=== PATIENT | female | born 1990 | race American Indian/Alaskan Native ===

== ENCOUNTER 2020-07-24 08:36 | Emergency (ER) | payer MEDICAID ==
[2020-07-24] MEDS ORDERED: ASPIRIN 325 MG TAB PO ONE (08:44)
[2020-07-24 09:09] LABS: Basophils % (Auto) 0.5 % (0.0-1.8); Eosinophils # (Auto) 0.1 K/mm3 (0.0-0.4); Eosinophils % (Auto) 0.8 % (0.0-4.3); Hematocrit 35.3 % (30.3-42.9); Hemoglobin 11.4 gm/dl (10.1-14.3); Lymphocytes # (Auto) 1.4 K/mm3 (1.2-5.4); Lymphocytes % (Auto) 21.3 % (13.4-35.0); Mean Corpuscular HGB Conc 32 % (30-34); Mean Corpuscular Volume 84 fl (79-97); Monocytes # (Auto) 0.3 K/mm3 (0.0-0.8); Monocytes % (Auto) 5.2 % (0.0-7.3); Platelet Count 255 K/mm3 (140-440); Red Blood Count 4.18 M/mm3 (3.65-5.03); Red Cell Distribution Width 15.1 % (13.2-15.2)
--- NOTE | 2020-07-24 09:10 | XRay Report ---
CHEST 1 VIEW INDICATION: Chest Pain. COMPARISON: None. FINDINGS: Support devices: None. Heart: Normal. Lungs/Pleura: No acute pulmonary or pleural findings. IMPRESSION: 1. No acute findings. Signer Name: Gregory Campbell MD Signed: 07/24/2020 9:06 AM Workstation Name: [id number]
[2020-07-24 09:30] LABS: BUN/Creatinine Ratio 13; Blood Urea Nitrogen 9 mg/dL (7-17); Calcium 9.1 mg/dL (8.4-10.2); Hemolysis Index 2
[2020-07-24] MEDS ORDERED: KETOROLAC 10 MG TAB ONE (14:00)
--- NOTE | 2020-07-24 14:18 | Emergency Department Report ---
ED Chest Pain HPI - General Chief Complaint: Chest Pain Stated Complaint: CHEST PAINS Time Seen by Provider: 07/24/20 14:13 Source: patient Mode of arrival: Ambulatory Limitations: No Limitations - History of Present Illness Initial Comments: 29-year-old -[place] female patient without past medical history presents with complaints of sudden onset of lower substernal chest pain x about 2 AM last night. She describes the pain as a squeezing type pain and denies radiation through to her back. Patient rates her current pain as a 7/10 in severity and states it also radiates into her upper stomach. She denies any abnormal heart history or family history of heart disease, shortness of breath, cough, hemoptysis, leg pain/swelling, history of DVT/PE/cancer, recent long travel/surgeries, or hormone use. Pain worsens with deep inhalation per patient. She also denies any recent heavy lifting or trauma to her chest wall or history of GERD. - Related Data Previous Rx's Medication Instructions Recorded Last Taken Type Diclofenac Sodium 75 mg PO BID PRN #14 tablet. 07/24/20 Unknown Rx methOCARBAMOL [Robaxin TAB] 1,500 mg PO Q8H PRN #22 tablet 07/24/20 Unknown Rx Allergies Allergy/AdvReac Type Severity Reaction Status Date / Time No Known Allergies Allergy Unverified 07/24/20 08:40 Heart Score - HEART Score History: Slightly suspicious EKG: Normal Age: < 45 Risk factors: No known risk factors Troponin: < normal limit HEART Score: 0 - Critical Actions Critical Actions: 0-3 pts:0.9-1.7%risk of adverse cardiac event.Candidate for discharge ED Review of Systems ROS: Stated complaint: CHEST PAINS Other details as noted in HPI Constitutional: denies: chills, diaphoresis, fever, malaise, weakness Respiratory: denies: cough, shortness of breath Cardiovascular: chest pain. denies: palpitations, edema, syncope Endocrine: denies: excessive sweating Gastrointestinal: as per HPI. denies: nausea Skin: denies: lesions, change in color Neurological: denies: headache, weakness Hematological/Lymphatic: denies: swollen glands ED Past Medical Hx - Past Medical History Previous Medical History?: No - Surgical History Past Surgical History?: No - Social History Smoking Status: Never Smoker - Medications Home Medications: Home Medications Medication Instructions Recorded Confirmed Last Taken Type Diclofenac Sodium 75 mg PO BID PRN #14 tablet. 07/24/20 Unknown Rx methOCARBAMOL [Robaxin TAB] 1,500 mg PO Q8H PRN #22 tablet 07/24/20 Unknown Rx ED Physical Exam - General Limitations: No Limitations General appearance: alert, in no apparent distress - Head Head exam: Present: atraumatic, normocephalic - Eye Eye exam: Present: normal appearance. Absent: scleral icterus - ENT ENT exam: Present: mucous membranes moist - Neck Neck exam: Present: normal inspection - Respiratory Respiratory exam: Present: normal lung sounds bilaterally, chest wall tenderness (Bilateral lower parasternal and sternal tenderness to palpation noted without skin changes). Absent: respiratory distress - Cardiovascular Cardiovascular Exam: Present: regular rate, normal rhythm. Absent: systolic murmur, diastolic murmur, rubs, gallop - GI/Abdominal GI/Abdominal exam: Present: soft. Absent: distended, tenderness, guarding, rebound - Extremities Exam Extremities exam: Present: full ROM. Absent: calf tenderness (No swelling or pain noted to legs bilaterally) - Back Exam Back exam: Present: full ROM. Absent: CVA tenderness (R), CVA tenderness (L), paraspinal tenderness, vertebral tenderness - Neurological Exam Neurological exam: Present: alert, oriented X3, normal gait - Psychiatric Psychiatric exam: Present: normal affect, normal mood - Skin Skin exam: Present: warm, dry, intact, normal color. Absent: rash, cyanosis ED Course Vital Signs 07/24/20 07/24/20 08:39 14:39 Temperature 98.5 F Pulse Rate 89 85 Respiratory 16 16 Rate Blood Pressure 137/89 Blood Pressure 121/78 [Right] O2 Sat by Pulse 100 99 Oximetry ED Medical Decision Making - Lab Data Result diagrams: 07/24/20 08:55 07/24/20 08:55 Lab Results 07/24/20 07/24/20 07/24/20 Range/Units 08:55 08:55 11:39 WBC 6.6 (4.5-11.0) K/mm3 RBC 4.18 (3.65-5.03) M/mm3 Hgb 11.4 (10.1-14.3) gm/dl Hct 35.3 (30.3-42.9) % MCV 84 (79-97) fl MCH 27 L (28-32) pg MCHC 32 (30-34) % RDW 15.1 (13.2-15.2) % Plt Count 255 (140-440) K/mm3 Lymph % (Auto) 21.3 (13.4-35.0) % Edmunds % (Auto) 5.2 (0.0-7.3) % Eos % (Auto) 0.8 (0.0-4.3) % Baso % (Auto) 0.5 (0.0-1.8) % Lymph # (Auto) 1.4 (1.2-5.4) K/mm3 Edmunds # (Auto) 0.3 (0.0-0.8) K/mm3 Eos # (Auto) 0.1 (0.0-0.4) K/mm3 Baso # (Auto) 0.0 (0.0-0.1) K/mm3 Seg Neutrophils % 72.2 H (40.0-70.0) % Seg Neutrophils # 4.8 (1.8-7.7) K/mm3 Sodium 138 (137-145) mmol/L Potassium 4.2 (3.6-5.0) mmol/L Chloride 103.3 (98-107) mmol/L Carbon Dioxide 25 (22-30) mmol/L Anion Gap 14 mmol/L BUN 9 (7-17) mg/dL Creatinine 0.7 (0.6-1.2) mg/dL Estimated GFR > 60 ml/min BUN/Creatinine Ratio 13 % Glucose 99 (65-100) mg/dL Calcium 9.1 (8.4-10.2) mg/dL Troponin T < 0.010 < 0.010 (0.00-0.029) ng/mL - EKG Data EKG shows normal: sinus rhythm Rate: normal - EKG Data Interpretation: normal EKG - Radiology Data Radiology results: report reviewed - Medical Decision Making 29-year-old -[place] female patient without past medical history presents with complaints of sudden onset of lower substernal chest pain x about 2 AM last night. She describes the pain as a squeezing type pain and denies radiation through to her back. Patient rates her current pain as a 7/10 in severity and states it also radiates into her upper stomach. She denies any abnormal heart history or family history of heart disease, shortness of breath, cough, hemoptysis, leg pain/swelling, history of DVT/PE/cancer, recent long travel/surgeries, or hormone use. Pain worsens with deep inhalation per patien t. She also denies any recent heavy lifting or trauma to her chest wall or history of GERD. CBC, CMP, and troponin are normal. Chest x-ray is without acute findings. Patient has tenderness to palpation of the costal sternal area of her chest where she states her pain is. Heart score = 0. PERC score = 0. Suspect costochondritis as cause. Patient given Toradol and states her symptoms have improved. Recommend icing and NSAIDs for now. Patient to follow-up with primary care within 2 days. Her vitals are normal, she is well-appearing, she is stable for discharge home. Strict return precautions were discussed in detail with patient who verbalizes understanding. Critical care attestation.: If time is entered above; I have spent that time in minutes in the direct care of this critically ill patient, excluding procedure time. ED Disposition Clinical Impression: Costochondritis, acute, Other chest pain Disposition: DC- TO HOME OR SELFCARE Is pt being admited?: No Condition: Stable Instructions: Chest Pain (ED) Prescriptions: Diclofenac Sodium 75 mg PO BID PRN #14 tablet. PRN Reason: pain methOCARBAMOL [Robaxin TAB] 1,500 mg PO Q8H PRN #22 tablet PRN Reason: muscle tightness/spasm Referrals: EDIS RENNER MD [Referring] - 2-3 Days
[2020-07-24 14:39] VITALS: BP 121/78
[2020-07-24] MEDS ORDERED: KETOROLAC 10 MG TAB PO ONE (18:21)
== END 2020-07-24 14:40 | disposition home or self-care (01) ==
LOC: ED 08:36
DX: M94.0 Chondrocostal junction syndrome [Tietze] (principal); R07.89 Other chest pain; Z79.899 Other long term (current) drug therapy
CPT/HCPCS: 36415; 71045; 80048; 84484; 85025; 93005